=== PATIENT | male | born 1975 | race American Indian/Alaskan Native ===

== ENCOUNTER 2018-11-15 00:50 | Emergency (ER) | payer MEDICAID ==
[2018-11-15] MEDS ORDERED: KEPPRA 1,000 MG in NACL 0.9% 100 ML IV ONE (01:29)
--- NOTE | 2018-11-15 01:33 | Emergency Department Report ---
ED Seizure HPI - General Chief Complaint: Seizure Stated Complaint: SEIZURE Time Seen by Provider: 11/15/18 01:04 Source: EMS Mode of arrival: Stretcher Limitations: Physical Limitation - History of Present Illness Initial Comments: 43-year-old male with history of seizures presents to the ED following seizure activity at home. He is on Keppra 500 mg twice a day, however states he ran out one week ago. MD Complaint: seizure -: This evening Description of Episode: loss of consciousness Witnessed:: Yes Seizure History: known seizure disorder, other (ran out of keppra) Place: home Possible Precipitating Event: other (lack of medication) Associated Symptoms: denies other symptoms Treatments Prior to Arrival: none - Related Data Home Medications Medication Instructions Recorded Confirmed Last Taken levETIRAcetam [Keppra TAB] 2,000 mg PO BID 09/03/18 09/03/18 08/27/18 2000 MG PO BID Previous Rx's Medication Instructions Recorded Last Taken Type levETIRAcetam [Keppra TAB] 1,000 mg PO BID #60 tab 09/03/18 Unknown Rx levETIRAcetam [Keppra TAB] 500 mg PO BID 30 Days #60 tablet 11/15/18 Unknown Rx Allergies Allergy/AdvReac Type Severity Reaction Status Date / Time phenobarbital Allergy Itching Verified 10/06/18 15:09 ED Review of Systems ROS: Stated complaint: SEIZURE Other details as noted in HPI Comment: All other systems reviewed and negative Constitutional: denies: chills, fever Neurological: denies: headache ED Past Medical Hx - Past Medical History Previous Medical History?: Yes Hx Hypertension: Yes Hx CVA: No Hx Heart Attack/AMI: No Hx Congestive Heart Failure: No Hx Diabetes: No Hx Deep Vein Thrombosis: No Hx Pulmonary Embolism: No Hx GERD: No Hx Liver Disease: No Hx Renal Disease: No Hx Sickle Cell Disease: No Hx Arthritis: No Hx Headaches / Migraines: No Hx Seizures: Yes Hx Kidney Stones: No Hx Psychiatric Treatment: No Hx Asthma: No Hx COPD: No Hx Tuberculosis: No Hx Dementia: No Hx HIV: No Additional medical history: LLE AMBULATION - Surgical History Past Surgical History?: Yes Hx Coronary Stent: No Hx Open Heart Surgery: No Hx Pacemaker: No Hx Internal Defibrillator: No Hx Cholecystectomy: No Hx Appendectomy: No Hx Breast Surgery: No 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 - Social History Smoking Status: Light Tobacco Smoker Substance Use Type: Marijuana - Medications Home Medications: Home Medications Medication Instructions Recorded Confirmed Last Taken Type levETIRAcetam [Keppra TAB] 1,000 mg PO BID #60 tab 09/03/18 Unknown Rx levETIRAcetam [Keppra TAB] 2,000 mg PO BID 09/03/18 09/03/18 08/27/18 History 2000 MG PO BID levETIRAcetam [Keppra TAB] 500 mg PO BID 30 Days #60 tablet 11/15/18 Unknown Rx ED Physical Exam - General Limitations: Physical Limitation General appearance: alert, in no apparent distress - Head Head exam: Present: atraumatic, normocephalic - Eye Eye exam: Present: normal appearance - ENT ENT exam: Present: mucous membranes moist - Neck Neck exam: Present: normal inspection - Respiratory Respiratory exam: Present: normal lung sounds bilaterally. Absent: respiratory distress - Cardiovascular Cardiovascular Exam: Present: regular rate, normal rhythm - GI/Abdominal GI/Abdominal exam: Present: soft. Absent: distended - Extremities Exam Extremities exam: Present: other (left BKA present) - Neurological Exam Neurological exam: Present: alert, oriented X3, CN II-XII intact, motor sensory deficit - Psychiatric Psychiatric exam: Present: normal affect, normal mood - Skin Skin exam: Present: warm, dry, intact, normal color ED Course Vital Signs 11/15/18 11/15/18 11/15/18 00:53 01:08 01:15 Temperature 99.2 F Pulse Rate 78 78 Respiratory 20 11 L Rate Blood Pressure 118/70 132/73 O2 Sat by Pulse 99 98 99 Oximetry 11/15/18 11/15/18 11/15/18 01:30 01:45 02:00 Temperature Pulse Rate 78 63 63 Respiratory 16 17 12 Rate Blood Pressure 133/76 119/76 118/72 O2 Sat by Pulse 99 100 100 Oximetry 11/15/18 11/15/18 11/15/18 02:15 02:16 02:30 Temperature Pulse Rate 77 71 Respiratory 16 20 14 Rate Blood Pressure 135/71 125/69 O2 Sat by Pulse 100 98 100 Oximetry 11/15/18 11/15/18 02:45 03:00 Temperature Pulse Rate 71 84 Respiratory 16 18 Rate Blood Pressure 117/57 136/70 O2 Sat by Pulse 99 100 Oximetry ED Medical Decision Making - Lab Data Result diagrams: 11/15/18 01:17 11/15/18 01:17 - Medical Decision Making 43-year-old male history of seizures presents to the ED following a seizure at home. Keppra bolus given here in ED. Labs normal, no electrolyte abnormalities present. Patient observed, no seizure activity while in the ED. Will discharge at this time. Prescription given for keppra. Outpatient follow-up advised. Return precautions given. - Differential Diagnosis seizure, electrolyte abnormalities, med noncompliance Critical care attestation.: If time is entered above; I have spent that time in minutes in the direct care of this critically ill patient, excluding procedure time. ED Disposition Clinical Impression: Seizure Disposition: DC-01 TO HOME OR SELFCARE Is pt being admited?: No Condition: Stable Instructions: Epilepsy (ED) Prescriptions: levETIRAcetam [Keppra TAB] 500 mg PO BID 30 Days #60 tablet Referrals: KOJO BENITO [Primary Care Provider] - 3-5 Days Time of Disposition: 02:12
[2018-11-15 01:46] LABS: BUN/Creatinine Ratio 13; Blood Urea Nitrogen 12 mg/dL (9-20); Calcium 8.7 mg/dL (8.4-10.2); Hemolysis Index 4
[2018-11-15] MEDS ORDERED: KEPPRA 1,000 MG/NS 0.75% 100ML 1,000 MG/100 ML BAG IV ONE (02:00)
[2018-11-15 02:02] LABS: Hematocrit 37.6 % (35.5-45.6); Hemoglobin 12.5 gm/dl (11.8-15.2); Mean Corpuscular HGB Conc 33 % (32-34); Mean Corpuscular Volume 97 fl (84-94); Platelet Count 229 K/mm3 (140-440); Red Blood Count 3.86 M/mm3 (3.65-5.03); Red Cell Distribution Width 13.6 % (13.2-15.2)
[2018-11-15 03:15] VITALS: BP 136/70
== END 2018-11-15 03:15 | disposition home or self-care (01) ==
LOC: ED 00:50
DX: R56.9 Unspecified convulsions (principal); Z88.6 Allergy status to analgesic agent
CPT/HCPCS: 36415; 80048; 82962; 85027; 96374; 99284; J1953

== ENCOUNTER 2018-12-22 10:23 | Emergency (ER) | payer MEDICAID ==
[2018-12-22] MEDS ORDERED: KEPPRA 1,000 MG/NS 0.75% 100ML 1,000 MG/100 ML BAG IV ONE (12:00)
[2018-12-22] MEDS ORDERED: ATIVAN IV ONE (12:01)
--- NOTE | 2018-12-22 13:03 | Emergency Department Report ---
ED General Adult HPI - General Chief complaint: Seizure Stated complaint: SEIZURE Time Seen by Provider: 12/22/18 11:37 Source: patient, EMS Mode of arrival: Stretcher Limitations: No Limitations - History of Present Illness Initial comments: Patient presents to the emergency department for seizures. The patient has had 2 seizures in the last 24 hours. The patient states that it isn't thousand milligrams of Keppra daily but his last dose was yesterday morning because he ran out. Patient has no complaints. -: Sudden Severity scale (0 -10): 0 Improves with: none Worsens with: none Associated Symptoms: denies other symptoms Treatments Prior to Arrival: none - Related Data Previous Rx's Medication Instructions Recorded Last Taken Type levETIRAcetam [Keppra TAB] 1,000 mg PO BID #60 tab 09/03/18 1 Day Ago Rx ~12/21/18 levETIRAcetam [Keppra TAB] 500 mg PO BID #120 tablet 12/22/18 Unknown Rx Allergies Allergy/AdvReac Type Severity Reaction Status Date / Time phenobarbital Allergy Itching Verified 10/06/18 15:09 ED Review of Systems ROS: Stated complaint: SEIZURE Other details as noted in HPI Comment: All other systems reviewed and negative Constitutional: denies: chills, fever Eyes: denies: eye pain, eye discharge, vision change ENT: denies: ear pain, throat pain Respiratory: denies: cough, shortness of breath, wheezing Cardiovascular: denies: chest pain, palpitations Endocrine: no symptoms reported Gastrointestinal: denies: abdominal pain, nausea, diarrhea Genitourinary: denies: urgency, dysuria Musculoskeletal: denies: back pain, joint swelling, arthralgia Skin: denies: rash, lesions Neurological: denies: headache, weakness, paresthesias Psychiatric: denies: anxiety, depression Hematological/Lymphatic: denies: easy bleeding, easy bruising ED Past Medical Hx - Past Medical History Previous Medical History?: Yes Hx Hypertension: Yes Hx CVA: No Hx Heart Attack/AMI: No Hx Congestive Heart Failure: No Hx Diabetes: No Hx Deep Vein Thrombosis: No Hx Pulmonary Embolism: No Hx GERD: No Hx Liver Disease: No Hx Renal Disease: No Hx Sickle Cell Disease: No Hx Arthritis: No Hx Headaches / Migraines: No Hx Seizures: Yes (Takes Keppra 1000 mg BID) Hx Kidney Stones: No Hx Psychiatric Treatment: No Hx Asthma: No Hx COPD: No Hx Tuberculosis: No Hx Dementia: No Hx HIV: No Additional medical history: LLE AMBULATION - Surgical History Past Surgical History?: Yes Hx Coronary Stent: No Hx Open Heart Surgery: No Hx Pacemaker: No Hx Internal Defibrillator: No Hx Cholecystectomy: No Hx Appendectomy: No Hx Breast Surgery: No 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 - Social History Smoking Status: Current Some Day Smoker Substance Use Type: None - Medications Home Medications: Home Medications Medication Instructions Recorded Confirmed Last Taken Type levETIRAcetam [Keppra TAB] 1,000 mg PO BID #60 tab 09/03/18 12/22/18 1 Day Ago Rx ~12/21/18 levETIRAcetam [Keppra TAB] 500 mg PO BID #120 tablet 12/22/18 Unknown Rx ED Physical Exam - General Limitations: No Limitations General appearance: other (patient was post ictal but arousable) - Head Head exam: Present: atraumatic, normocephalic - Eye Eye exam: Present: normal appearance, PERRL, EOMI Pupils: Present: normal accommodation, irregular - ENT ENT exam: Present: normal exam, mucous membranes moist - Neck Neck exam: Present: normal inspection - Respiratory Respiratory exam: Present: normal lung sounds bilaterally. Absent: respiratory distress, wheezes, rales, rhonchi - Cardiovascular Cardiovascular Exam: Present: regular rate, normal rhythm - GI/Abdominal GI/Abdominal exam: Present: soft, normal bowel sounds. Absent: distended, tenderness - Extremities Exam Extremities exam: Present: other (left BKA) - Neurological Exam Neurological exam: Present: CN II-XII intact, other (patient is postictal but upon arousal he is oriented 3). Absent: motor sensory deficit - Skin Skin exam: Present: warm, dry, intact, normal color. Absent: rash ED Course Vital Signs 12/22/18 10:46 Temperature 98.8 F Pulse Rate 70 Respiratory 18 Rate Blood Pressure 116/77 O2 Sat by Pulse 100 Oximetry ED Medical Decision Making - Medical Decision Making IV Keppra and Ativan given Patient seizure free in the ED Critical care attestation.: If time is entered above; I have spent that time in minutes in the direct care of this critically ill patient, excluding procedure time. ED Disposition Clinical Impression: Seizure Disposition: DC-01 TO HOME OR SELFCARE Is pt being admited?: No Does the pt Need Aspirin: No Condition: Stable Instructions: Recurrent Seizures Adult (ED) Additional Instructions: return if worse Prescriptions: levETIRAcetam [Keppra TAB] 500 mg PO BID #120 tablet Referrals: CHRISTA CHAPPELLMONTICELLO MD [facility] [Primary Care Provider] - 3-5 Days [facility] [Provider Group] - 3-5 Days [facility] [Provider Group] - 3-5 Days Time of Disposition: 13:34
[2018-12-22 18:39] VITALS: BP 105/50
== END 2018-12-22 19:28 | disposition home or self-care (01) ==
LOC: ED 10:23
DX: G40.909 Epilepsy, unspecified, not intractable, without status epilepticus (principal); I10 Essential (primary) hypertension; F17.200 Nicotine dependence, unspecified, uncomplicated; Z88.8 Allergy status to other drugs, medicaments and biological substances
CPT/HCPCS: 96374; 96375; 99283; J1953; J2060

== ENCOUNTER 2019-02-28 05:31 | Emergency (ER) | payer MEDICAID, MEDICARE ==
[2019-02-28] MEDS ORDERED: KEPPRA PO ONE (06:40)
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
[2019-02-28 07:04] LABS: Basophils % (Auto) 0.3 % (0.0-1.8); Eosinophils % (Auto) 0.1 % (0.0-4.3); Hematocrit 36.6 % (35.5-45.6); Hemoglobin 12.4 gm/dl (11.8-15.2); Lymphocytes # (Auto) 0.6 K/mm3 (1.2-5.4); Lymphocytes % (Auto) 9.4 % (13.4-35.0); Mean Corpuscular HGB Conc 34 % (32-34); Mean Corpuscular Volume 96 fl (84-94); Monocytes # (Auto) 0.3 K/mm3 (0.0-0.8); Platelet Count 188 K/mm3 (140-440); Red Blood Count 3.81 M/mm3 (3.65-5.03)
[2019-02-28 07:23] LABS: BUN/Creatinine Ratio 10; Blood Urea Nitrogen 8 mg/dL (9-20); Calcium 8.3 mg/dL (8.4-10.2); Hemolysis Index 4
[2019-02-28 09:25] VITALS: BP 117/65
== END 2019-02-28 09:25 | disposition home or self-care (01) ==
LOC: ED 05:31
DX: G40.409 Other generalized epilepsy and epileptic syndromes, not intractable, without status epilepticus (principal); I10 Essential (primary) hypertension; F17.200 Nicotine dependence, unspecified, uncomplicated; F12.10 Cannabis abuse, uncomplicated; Z88.8 Allergy status to other drugs, medicaments and biological substances; Z89.612 Acquired absence of left leg above knee
CPT/HCPCS: 36415; 80048; 83735; 85025; 99284

== ENCOUNTER 2019-04-29 15:38 | Emergency (ER) | payer MEDICAID ==
[2019-04-29 16:37] VITALS: BP 126/81
--- NOTE | 2019-04-29 16:41 | Emergency Department Report ---
ED Medical Clearance HPI - General Chief complaint: Medical Clearance Stated complaint: MEDICATION REFILL Time Seen by Provider: 04/29/19 16:36 Source: patient Mode of arrival: Ambulatory - History of Present Illness Initial comments: pt presents for a medication refill. states his primary care doctor is at [facility]. pt takes levetiracetam 1000 mg BID. pt is on keppra for seizures. states he has one tablet left. could not get transportation to see his PCP at [facility]. pt denies any symptoms at all. states he just presents today for a refill because he did not want to run out of his medication and risk having a seizure. denies any recent seizure activity. Home medications: Previous Rx's Medication Instructions Recorded Last Taken Type levETIRAcetam [Keppra TAB] 500 mg PO BID #120 tablet 12/22/18 Unknown Rx levETIRAcetam [Keppra] 1,000 mg PO BID #60 tab-cap 02/28/19 Unknown Rx levETIRAcetam [Keppra TAB] 1,000 mg PO BID #60 tab 04/29/19 Unknown Rx Allergies/Adverse reactions: Allergies Allergy/AdvReac Type Severity Reaction Status Date / Time phenobarbital Allergy Itching Verified 04/29/19 15:41 ED Review of Systems ROS: Stated complaint: MEDICATION REFILL Other details as noted in HPI Comment: All other systems reviewed and negative ED Past Medical Hx - Past Medical History Hx Hypertension: Yes Hx CVA: No Hx Heart Attack/AMI: No Hx Congestive Heart Failure: No Hx Diabetes: No Hx Deep Vein Thrombosis: No Hx Pulmonary Embolism: No Hx GERD: No Hx Liver Disease: No Hx Renal Disease: No Hx Sickle Cell Disease: No Hx Arthritis: No Hx Headaches / Migraines: No Hx Seizures: Yes (Takes Keppra 1000 mg BID) Hx Kidney Stones: No Hx Psychiatric Treatment: No Hx Asthma: No Hx COPD: No Hx Tuberculosis: No Hx Dementia: No Hx HIV: No Additional medical history: LLE AMBULATION - Surgical History Hx Coronary Stent: No Hx Open Heart Surgery: No Hx Pacemaker: No Hx Internal Defibrillator: No Hx Cholecystectomy: No Hx Appendectomy: No Hx Breast Surgery: No 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, craniotomy - Social History Smoking Status: Current Some Day Smoker Substance Use Type: Marijuana - Medications Home Medications: Home Medications Medication Instructions Recorded Confirmed Last Taken Type levETIRAcetam [Keppra TAB] 500 mg PO BID #120 tablet 12/22/18 Unknown Rx levETIRAcetam [Keppra] 1,000 mg PO BID #60 tab-cap 02/28/19 Unknown Rx levETIRAcetam [Keppra TAB] 1,000 mg PO BID #60 tab 04/29/19 Unknown Rx ED Physical Exam - General Limitations: No Limitations General appearance: alert, in no apparent distress - Head Head exam: Present: atraumatic, normocephalic - Eye Eye exam: Present: normal appearance - ENT ENT exam: Present: mucous membranes moist - Respiratory Respiratory exam: Present: normal lung sounds bilaterally. Absent: respiratory distress, wheezes, rales, rhonchi, stridor, chest wall tenderness, accessory muscle use, decreased breath sounds, prolonged expiratory - Cardiovascular Cardiovascular Exam: Present: regular rate, normal rhythm, normal heart sounds. Absent: systolic murmur, diastolic murmur, rubs, gallop - Extremities Exam Extremities exam: Present: other (left BKA) - Neurological Exam Neurological exam: Present: alert, oriented X3 - Psychiatric Psychiatric exam: Present: normal affect, normal mood - Skin Skin exam: Present: warm, dry, intact ED Course Vital Signs 04/29/19 16:36 Temperature 98.1 F Pulse Rate 87 Respiratory 16 Rate Blood Pressure 126/81 O2 Sat by Pulse 100 Oximetry ED Medical Decision Making - Medical Decision Making pt presents for a medication refill. states his primary care doctor is at [facility]. pt takes levetiracetam 1000 mg BID. pt is on keppra for seizures. states he has one tablet left. could not get transportation to see his PCP at [facility]. pt denies any symptoms at all. states he just presents today for a refill because he did not want to run out of his medication and risk having a seizure. denies any recent seizure activity. vitals are normal. refilled a 1 month supply of his medication. advised to please take your medication as prescribed. future refills of your medication will need to be through your primary care doctor or one of the clinics listed below. it is very important you see a primary care doctor on a regular basis to manage your chronic medical conditions. return to the emergency room if begin experiencing any symptoms. ED Disposition Clinical Impression: Medication refill Disposition: DC- TO HOME OR SELFCARE Is pt being admited?: No Does the pt Need Aspirin: No Condition: Stable Additional Instructions: please take your medication as prescribed. future refills of your medication will need to be through your primary care doctor or one of the clinics listed below. it is very important you see a primary care doctor on a regular basis to manage your chronic medical conditions. return to the emergency room if begin experiencing any symptoms. Prescriptions: levETIRAcetam [Keppra TAB] 1,000 mg PO BID #60 tab Referrals: [facility] [Outside] - 2-3 Days [facility] [Outside] - 2-[address] [facility] [Outside] - 2-3 Days Time of Disposition: 16:40 Print Language: GEORGI[place]
== END 2019-04-29 17:03 | disposition home or self-care (01) ==
LOC: ED 15:38
DX: R56.9 Unspecified convulsions (principal); Z76.0 Encounter for issue of repeat prescription; I10 Essential (primary) hypertension; F17.200 Nicotine dependence, unspecified, uncomplicated; F12.90 Cannabis use, unspecified, uncomplicated; Z88.8 Allergy status to other drugs, medicaments and biological substances
CPT/HCPCS: 99281

== ENCOUNTER 2019-05-02 13:14 | Emergency (ER) | payer MEDICAID ==
[2019-05-02] MEDS ORDERED: KEPPRA 1,000 MG/NS 0.75% 100ML 1,000 MG/100 ML BAG IV ONE (13:38)
[2019-05-02 13:47] VITALS: BP 110/71
--- NOTE | 2019-05-02 14:03 | Emergency Department Report ---
ED General Adult HPI - General Chief complaint: Seizure Stated complaint: SEIZURE Time Seen by Provider: 05/02/19 13:37 Source: patient, EMS Mode of arrival: Stretcher Limitations: Physical Limitation - History of Present Illness Initial comments: 44-year-old male with a history of seizure disorder. He states his last seizure before today was less than a month ago. He admits that he had been running out of his Keppra. He states he took the "last pill last night". He had a generalized seizure this morning. He denies any injury. He denies any ant ecedent illness or symptoms. He is asymptomatic at this time. -: Gradual Improves with: none Worsens with: none Associated Symptoms: denies other symptoms Treatments Prior to Arrival: none - Related Data Previous Rx's Medication Instructions Recorded Last Taken Type levETIRAcetam [Keppra TAB] 500 mg PO BID #120 tablet 12/22/18 Unknown Rx levETIRAcetam [Keppra TAB] 1,000 mg PO BID #60 tab 04/29/19 Unknown Rx levETIRAcetam [Keppra] 1,000 mg PO BID #60 tab-cap 05/02/19 Unknown Rx Allergies Allergy/AdvReac Type Severity Reaction Status Date / Time phenobarbital Allergy Itching Verified 05/02/19 13:39 ED Review of Systems ROS: Stated complaint: SEIZURE Other details as noted in HPI Constitutional: denies: chills, fever Eyes: denies: eye pain, eye discharge, vision change ENT: denies: ear pain, throat pain Respiratory: denies: cough, shortness of breath, wheezing Cardiovascular: denies: chest pain, palpitations Endocrine: no symptoms reported Gastrointestinal: denies: abdominal pain, nausea, diarrhea Genitourinary: denies: urgency, dysuria Musculoskeletal: denies: back pain, joint swelling, arthralgia Skin: denies: rash, lesions Neurological: as per HPI. denies: headache, weakness, paresthesias Psychiatric: denies: anxiety, depression Hematological/Lymphatic: denies: easy bleeding, easy bruising ED Past Medical Hx - Past Medical History Hx Hypertension: Yes Hx CVA: No Hx Heart Attack/AMI: No Hx Congestive Heart Failure: No Hx Diabetes: No Hx Deep Vein Thrombosis: No Hx Pulmonary Embolism: No Hx GERD: No Hx Liver Disease: No Hx Renal Disease: No Hx Sickle Cell Disease: No Hx Arthritis: No Hx Headaches / Migraines: No Hx Seizures: Yes (Takes Keppra 1000 mg BID) Hx Kidney Stones: No Hx Psychiatric Treatment: No Hx Asthma: No Hx COPD: No Hx Tuberculosis: No Hx Dementia: No Hx HIV: No Additional medical history: LLE AMBULATION - Surgical History Hx Coronary Stent: No Hx Open Heart Surgery: No Hx Pacemaker: No Hx Internal Defibrillator: No Hx Cholecystectomy: No Hx Appendectomy: No Hx Breast Surgery: No 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, craniotomy - Social History Smoking Status: Current Every Day Smoker Substance Use Type: Marijuana Other Social History: Denies alcohol use - Medications Home Medications: Home Medications Medication Instructions Recorded Confirmed Last Taken Type levETIRAcetam [Keppra TAB] 500 mg PO BID #120 tablet 12/22/18 Unknown Rx levETIRAcetam [Keppra TAB] 1,000 mg PO BID #60 tab 04/29/19 Unknown Rx levETIRAcetam [Keppra] 1,000 mg PO BID #60 tab-cap 05/02/19 Unknown Rx ED Physical Exam - General Limitations: Physical Limitation General appearance: alert, in no apparent distress - Head Head exam: Present: atraumatic, normocephalic - Eye Eye exam: Present: normal appearance - ENT ENT exam: Present: mucous membranes moist, other (patient had some tongue fasciculations but he denies alcohol use he does not otherwise appear to be withdrawing.) - Neck Neck exam: Present: normal inspection - Respiratory Respiratory exam: Present: normal lung sounds bilaterally. Absent: respiratory distress - Cardiovascular Cardiovascular Exam: Present: regular rate, normal rhythm. Absent: systolic murmur, diastolic murmur, rubs, gallop - GI/Abdominal GI/Abdominal exam: Present: soft, normal bowel sounds - Rectal Rectal exam: Present: deferred - Extremities Exam Extremities exam: Present: normal inspection - Back Exam Back exam: Present: normal inspection - Neurological Exam Neurological exam: Present: alert, oriented X3 - Psychiatric Psychiatric exam: Present: normal affect, normal mood - Skin Skin exam: Present: warm, dry, intact, normal color. Absent: rash ED Course Vital Signs 05/02/19 13:40 Temperature 98.3 F Pulse Rate 61 Respiratory 16 Rate Blood Pressure 110/71 O2 Sat by Pulse 100 Oximetry ED Medical Decision Making - Lab Data Result diagrams: 05/02/19 14:01 05/02/19 14:01 Laboratory Results - last 24 hr 05/02/19 05/02/19 14:01 14:01 WBC 3.5 L RBC 4.12 Hgb 13.3 Hct 39.4 MCV 96 H MCH 32 MCHC 34 RDW 13.7 Plt Count 182 Lymph % (Auto) 27.2 Phillips % (Auto) 9.7 H Eos % (Auto) 0.3 Baso % (Auto) 0.8 Lymph # 1.0 L Phillips # 0.3 Eos # 0.0 Baso # 0.0 Seg Neutrophils % 62.0 Seg Neutrophils # 2.2 Sodium 138 Potassium 3.9 Chloride 103.5 Carbon Dioxide 23 Anion Gap 15 BUN 10 Creatinine 0.9 Estimated GFR > 60 BUN/Creatinine Ratio 11 Glucose 93 Calcium 9.1 Magnesium 2.00 Critical care attestation.: If time is entered above; I have spent that time in minutes in the direct care of this critically ill patient, excluding procedure time. ED Disposition Clinical Impression: Generalized seizure, Generalized seizure disorder Disposition: DC-01 TO HOME OR SELFCARE Is pt being admited?: No Does the pt Need Aspirin: No Condition: Stable Instructions: Epilepsy (ED) Additional Instructions: Do not drive. Follow-up with [facility] clinic. Compliance with medicine is essential. Prescriptions: levETIRAcetam [Keppra] 1,000 mg PO BID #60 tab-cap Referrals: CHRISTA CHAPPELLJEWETT MD XOCHITL [Primary Care Provider] - 3-5 Days Time of Disposition: 15:18
[2019-05-02 14:12] LABS: Basophils % (Auto) 0.8 % (0.0-1.8); Eosinophils % (Auto) 0.3 % (0.0-4.3); Hematocrit 39.4 % (35.5-45.6); Hemoglobin 13.3 gm/dl (11.8-15.2); Lymphocytes % (Auto) 27.2 % (13.4-35.0); Mean Corpuscular HGB Conc 34 % (32-34); Mean Corpuscular Volume 96 fl (84-94); Monocytes # (Auto) 0.3 K/mm3 (0.0-0.8); Monocytes % (Auto) 9.7 % (0.0-7.3); Platelet Count 182 K/mm3 (140-440); Red Blood Count 4.12 M/mm3 (3.65-5.03); Red Cell Distribution Width 13.7 % (13.2-15.2)
[2019-05-02 14:27] LABS: BUN/Creatinine Ratio 11; Blood Urea Nitrogen 10 mg/dL (9-20); Calcium 9.1 mg/dL (8.4-10.2); Hemolysis Index 11
== END 2019-05-02 15:48 | disposition home or self-care (01) ==
LOC: ED 13:14
DX: G40.409 Other generalized epilepsy and epileptic syndromes, not intractable, without status epilepticus (principal); I10 Essential (primary) hypertension; F17.200 Nicotine dependence, unspecified, uncomplicated; F12.90 Cannabis use, unspecified, uncomplicated; Z98.890 Other specified postprocedural states; Z79.899 Other long term (current) drug therapy; Z89.612 Acquired absence of left leg above knee; Z88.8 Allergy status to other drugs, medicaments and biological substances
CPT/HCPCS: 36415; 80048; 83735; 85025; 93005; 93010; 96365; 99284; J1953

== ENCOUNTER 2019-05-06 12:55 | Emergency (ER) | payer MEDICAID ==
--- NOTE | 2019-05-06 15:27 | Emergency Department Report ---
Chief Complaint: Skin/Abscess/Foreign Body Stated Complaint: OTHER Time Seen by Provider: 05/06/19 14:36 - HPI History of Present Illness: This is a 44-year-old male who presents to ED once into phase day chairs taken out. Patient states 2-3 years ago to dentures were put in by [place] after he had a trauma to his teeth. Patient states he's teeth were replaced and the dentures are present and placed a voided out. Patient states that while he had a seizure several days ago one of the dentures came out of place and he is here to have it removed. She denies any bleeding and a laceration in the fracture or dental pain. - ROS Review of Systems: Make sure to follow up with the primary care physician as discussed. Take all your medications as you've been prescribed. If you have any worsening symptoms or develop new symptoms please return to ED immediately. - Exam Vital Signs: Vital Signs 05/06/19 13:05 Temperature 98.2 F Pulse Rate 85 Respiratory 16 Rate Blood Pressure 120/83 [Left] O2 Sat by Pulse 96 Oximetry Physical Exam: Gen: Patient is in no acute distress. Alert and oriented 3 HEENT: Partially removed dentures seen on tooth #3, 4 and 5 MSE screening note: Focused history and physical exam performed. Due to findings the following was ordered: ED Medical Decision Making - Medical Decision Making 44-year-old male presents to ED with the partial dental clasp stating that he would like to have it removed. I discussed with the patient that he would need to go to the accident take or dentist to have that removed. Referrals given to the patient. Patient is in no acute distress. Stable. Patient understands instructions and will follow-up with the dentist. ED Disposition for MSE Clinical Impression: Difficulty chewing due to dentures, Broken clasp of denture Disposition: DC-01 TO HOME OR SELFCARE Is pt being admited?: No Does the pt Need Aspirin: No Condition: Stable Additional Instructions: Make sure to follow up with the dentist as discussed. Take all your medications as you've been prescribed. If you have any worsening symptoms or develop new symptoms please return to ED immediately. Referrals: KOJO BENITO MD [Primary Care Provider] - 3-5 Days [facility] [Outside] - 3-5 Days [facility] [Outside] - 3-5 Days [facility] [Outside] - 3-5 Days [facility] [Outside] - 3-5 Days Forms: Work/School Release Form(ED) Time of Disposition: 15:31
[2019-05-06 15:43] VITALS: BP 125/74
== END 2019-05-06 15:41 | disposition home or self-care (01) ==
LOC: ED 12:55
DX: K08.539 Fractured dental restorative material, unspecified (principal)
CPT/HCPCS: 99282

== ENCOUNTER 2019-06-03 10:22 | Emergency (ER) | payer MEDICAID ==
[2019-06-03] MEDS ORDERED: KEPPRA 1,000 MG/NS 0.75% 100ML 1,000 MG/100 ML BAG IV ONE (10:33)
[2019-06-03] MEDS ORDERED: NACL 0.9% 1000 ML 1,000 ML IV ONE (10:33)
--- NOTE | 2019-06-03 10:34 | Emergency Department Report ---
ED Seizure HPI - General Stated Complaint: SEIZURES Time Seen by Provider: 06/03/19 10:32 - History of Present Illness Initial Comments: Patient is a 44-year-old mellitus emergency room with complaints of seizure. Patient states he ran out of his seizure medications 2 days ago. Patient states that he has not had time to go back and see his neurologist or primary care is why he ran out of medications. Patient denies head injury. Patient states she was laying down when the seizure took place. Patient states the seizure was witnessed by his family. Patient is alert and oriented at this time. Patient denies headache. Patient denies any symptoms except for feeling fatigued. Patient denies confusion. Patient denies injury. MD Complaint: seizure -: Sudden Description of Episode: loss of consciousness, tonic-clonic movement -: second(s) Witnessed:: Yes Trauma: No Seizure History: known seizure disorder, history of non-compliance Place: home Possible Precipitating Event: none Associated Symptoms: denies: chest pain, confusion, cough, diaphoresis, fever/chills, loss of appetite, malaise, rash, shortness of breath, syncope, weakness, tongue injury, shoulder dislocation Treatments Prior to Arrival: none - Related Data Previous Rx's Medication Instructions Recorded Last Taken Type levETIRAcetam [Keppra TAB] 500 mg PO BID #120 tablet 12/22/18 Unknown Rx levETIRAcetam [Keppra] 1,000 mg PO BID #60 tab-cap 05/02/19 Unknown Rx levETIRAcetam [Keppra TAB] 1,000 mg PO BID 15 Days #30 tab 06/03/19 Unknown Rx Allergies Allergy/AdvReac Type Severity Reaction Status Date / Time phenobarbital Allergy Itching Verified 05/06/19 12:57 ED Review of Systems ROS: Stated complaint: SEIZURES Other details as noted in HPI Constitutional: denies: chills, fever Eyes: denies: eye pain, eye discharge, vision change ENT: denies: ear pain, throat pain Respiratory: denies: cough, shortness of breath, wheezing Cardiovascular: denies: chest pain, palpitations Endocrine: no symptoms reported Gastrointestinal: denies: abdominal pain, nausea, diarrhea Genitourinary: denies: urgency, dysuria Musculoskeletal: denies: back pain, joint swelling, arthralgia Skin: denies: rash, lesions Neurological: denies: headache, weakness, paresthesias Psychiatric: denies: anxiety, depression Hematological/Lymphatic: denies: easy bleeding, easy bruising ED Past Medical Hx - Past Medical History Previous Medical History?: Yes Hx Hypertension: Yes Hx CVA: No Hx Heart Attack/AMI: No Hx Congestive Heart Failure: No Hx Diabetes: No Hx Deep Vein Thrombosis: No Hx Pulmonary Embolism: No Hx GERD: No Hx Liver Disease: No Hx Renal Disease: No Hx Sickle Cell Disease: No Hx Arthritis: No Hx Headaches / Migraines: No Hx Seizures: Yes (Takes Keppra 1000 mg BID) Hx Kidney Stones: No Hx Psychiatric Treatment: No Hx Asthma: No Hx COPD: No Hx Tuberculosis: No Hx Dementia: No Hx HIV: No Additional medical history: LLE AMBULATION - Surgical History Past Surgical History?: Yes Hx Coronary Stent: No Hx Open Heart Surgery: No Hx Pacemaker: No Hx Internal Defibrillator: No Hx Cholecystectomy: No Hx Appendectomy: No Hx Breast Surgery: No 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, craniotomy - Family History Family history: no significant - Social History Smoking Status: Never Smoker Substance Use Type: None - Medications Home Medications: Home Medications Medication Instructions Recorded Confirmed Last Taken Type levETIRAcetam [Keppra TAB] 500 mg PO BID #120 tablet 12/22/18 Unknown Rx levETIRAcetam [Keppra] 1,000 mg PO BID #60 tab-cap 05/02/19 Unknown Rx levETIRAcetam [Keppra TAB] 1,000 mg PO BID 15 Days #30 tab 06/03/19 Unknown Rx ED Physical Exam - General Limitations: No Limitations General appearance: alert, in no apparent distress - Head Head exam: Present: atraumatic, normocephalic - Eye Eye exam: Present: normal appearance, PERRL Pupils: Present: normal accommodation - ENT ENT exam: Present: mucous membranes moist - Neck Neck exam: Present: normal inspection - Respiratory Respiratory exam: Present: normal lung sounds bilaterally. Absent: respiratory distress - Cardiovascular Cardiovascular Exam: Present: regular rate, normal rhythm. Absent: systolic murmur, diastolic murmur, rubs, gallop - GI/Abdominal GI/Abdominal exam: Present: soft, normal bowel sounds - Rectal Rectal exam: Present: deferred - Extremities Exam Extremities exam: Present: normal inspection - Back Exam Back exam: Present: normal inspection - Neurological Exam Neurological exam: Present: alert, oriented X3 - Psychiatric Psychiatric exam: Present: normal affect, normal mood - Skin Skin exam: Present: warm, dry, intact, normal color. Absent: rash ED Course Vital Signs 06/03/19 06/03/19 06/03/19 10:34 10:47 11:50 Temperature 97.9 F Pulse Rate 69 55 L Respiratory 16 16 16 Rate Blood Pressure 116/76 Blood Pressure 116/76 [Right] O2 Sat by Pulse 100 96 99 Oximetry - Reevaluation(s) Reevaluation #1: I discussed all results with patient. I discussed plan of care with patient. Patient states feeling good. Patient has not had any seizure activity in the E R. Patient given a refill of his medications. Patient agrees with plan of care. Patient stable at discharge. Patient will be discharged home. Patient given discharge instructions. Patient given follow-up instructions. Patient voiced understanding of all instructions. 06/03/19 13:19 ED Medical Decision Making - Lab Data Result diagrams: 06/03/19 12:24 06/03/19 12:24 - Medical Decision Making Patient is a 44-year-old male with a known history of seizure the patient's emergency room seizure activity secondary to noncompliance. Patient given a refill of medications. Patient's labs unremarkable for a systematic pyuria. Pyuria most like secondary to seizure activity. Patient will need to follow up with his primary care for further evaluation and refills. Patient given IV Keppra at 1 g in the ER. Patient also tolerated by mouth intake. Patient stable for discharge. - Differential Diagnosis seizure. Noncompliance. Critical care attestation.: If time is entered above; I have spent that time in minutes in the direct care of this critically ill patient, excluding procedure time. ED Disposition Clinical Impression: Seizure, Noncompliance Disposition: DC-01 TO HOME OR SELFCARE Is pt being admited?: No Does the pt Need Aspirin: No Condition: Stable Instructions: Epilepsy (ED), Recurrent Seizures Adult (ED) Additional Instructions: Patient to follow-up with primary care in 2-3 days. Patient to follow up with neurologist in 2-3 days. Patient to return to the ER if condition worsens. Patient to take meds as directed. Patient to continue all meds. Patient increase water. Patient to avoid driving. Patient to rest. Prescriptions: levETIRAcetam [Keppra TAB] 1,000 mg PO BID 15 Days #30 tab Referrals: ALFRED MCKNIGHT MD [Primary Care Provider] - 2-3 Days Time of Disposition: 13:21
[2019-06-03 10:43] VITALS: BP 116/76
[2019-06-03 12:26] LABS: Bilirubin,Urine NEG (Negative); Blood,Urine SM (Negative); Color,Urine Yellow (Yellow); Mucus,Urine FEW /HPF; Protein,Urine <15 mg/dL mg/dL (Negative); Urobilinogen,Urine < 2.0 mg/dL (<2.0)
[2019-06-03 12:33] LABS: Amphetamine Screen,Urine PRESUMPTIVE NEGATIVE; Benzodiazepines Screen,Urine PRESUMPTIVE NEGATIVE; Cocaine Screen,Urine PRESUMPTIVE NEGATIVE; Methadone Screen,Urine PRESUMPTIVE NEGATIVE; Opiate Screen,Urine PRESUMPTIVE NEGATIVE
[2019-06-03 12:50] LABS: Basophils # (Auto) 0.1 K/mm3 (0.0-0.1); Hematocrit 37.5 % (35.5-45.6); Hemoglobin 12.6 gm/dl (11.8-15.2); Lymphocytes # (Auto) 0.6 K/mm3 (1.2-5.4); Lymphocytes % (Auto) 5.8 % (13.4-35.0); Mean Corpuscular HGB Conc 34 % (32-34); Mean Corpuscular Volume 96 fl (84-94); Monocytes # (Auto) 0.5 K/mm3 (0.0-0.8); Monocytes % (Auto) 5.1 % (0.0-7.3); Platelet Count 164 K/mm3 (140-440); Red Cell Distribution Width 13.3 % (13.2-15.2)
[2019-06-03 12:51] LABS: Cannabinoid Screen,Urine PRESUMPTIVE POSITIVE
[2019-06-03 13:11] LABS: Alanine Aminotransferase 5 units/L (7-56); Albumin 3.8 g/dL (3.9-5); BUN/Creatinine Ratio 11; Blood Urea Nitrogen 10 mg/dL (9-20); Calcium 8.3 mg/dL (8.4-10.2); Hemolysis Index 9
== END 2019-06-03 14:11 | disposition home or self-care (01) ==
LOC: ED 10:22
DX: G40.909 Epilepsy, unspecified, not intractable, without status epilepticus (principal); I10 Essential (primary) hypertension; Z88.2 Allergy status to sulfonamides
CPT/HCPCS: 36415; 80053; 80307; 81001; 85025; 96374; 99284; J1953; J7030; 80320; G0480

== ENCOUNTER 2019-08-23 12:01 | Emergency (ER) | payer MEDICAID ==
[2019-08-23 12:44] VITALS: BP 125/69
[2019-08-23] MEDS ORDERED: levETIRAcetam 1000 MG/NS 0.75% 1,000 MG/100 ML BAG IV ONE (13:00)
[2019-08-23] MEDS ORDERED: SODIUM CHLORIDE 0.9% 1000 ML 1,000 ML IV ONE (13:08)
--- NOTE | 2019-08-23 13:08 | Emergency Department Report ---
ED General Adult HPI - General Chief complaint: Seizure Stated complaint: SEIZURE Time Seen by Provider: 08/23/19 13:01 Source: patient, EMS Mode of arrival: Stretcher Limitations: No Limitations - History of Present Illness Initial comments: Mr. Stone is a 44-year-old who comes to the ER via EMS after having a seizure this morning. He was found to be postictal by EMS. The patient has a known seizure disorder and is supposed to be taking Keppra. However, he states that he ran out. 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 On arrival to the emergency room patient was alert and oriented. He does report cigarette use alcohol use and occasional marijuana. He currently lives with his step daughter. -: Sudden Associated Symptoms: denies other symptoms Treatments Prior to Arrival: none - Related Data Previous Rx's Medication Instructions Recorded Last Taken Type levETIRAcetam [Keppra TAB] 1,000 mg PO BID #120 tablet 08/23/19 Unknown Rx levETIRAcetam [Keppra TAB] 1,000 mg PO BID #60 tab 08/23/19 Unknown Rx Allergies Allergy/AdvReac Type Severity Reaction Status Date / Time phenobarbital Allergy Itching Verified 08/23/19 12:45 ED Review of Systems ROS: Stated complaint: SEIZURE Other details as noted in HPI Comment: All other systems reviewed and negative ED Past Medical Hx - Past Medical History Previous Medical History?: Yes Hx Hypertension: Yes Hx CVA: No Hx Heart Attack/AMI: No Hx Congestive Heart Failure: No Hx Diabetes: No Hx Deep Vein Thrombosis: No Hx Pulmonary Embolism: No Hx GERD: No Hx Liver Disease: No Hx Renal Disease: No Hx Sickle Cell Disease: No Hx Arthritis: No Hx Headaches / Migraines: No Hx Seizures: Yes (Takes Keppra 1000 mg BID) Hx Kidney Stones: No Hx Psychiatric Treatment: No Hx Asthma: No Hx COPD: No Hx Tuberculosis: No Hx Dementia: No Hx HIV: No Additional medical history: LLE AMBULATION - Surgical History Past Surgical History?: Yes Hx Coronary Stent: No Hx Open Heart Surgery: No Hx Pacemaker: No Hx Internal Defibrillator: No Hx Cholecystectomy: No Hx Appendectomy: No Hx Breast Surgery: No 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, craniotomy - Family History Family history: no significant - Social History Smoking Status: Current Every Day Smoker Substance Use Type: Alcohol, Marijuana - Medications Home Medications: Home Medications Medication Instructions Recorded Confirmed Last Taken Type levETIRAcetam [Keppra TAB] 1,000 mg PO BID #120 tablet 08/23/19 08/23/19 Unknown Rx levETIRAcetam [Keppra TAB] 1,000 mg PO BID #60 tab 08/23/19 Unknown Rx ED Physical Exam - General Limitations: No Limitations General appearance: alert, in no apparent distress - Head Head exam: Present: atraumatic, normocephalic - Eye Eye exam: Present: normal appearance - ENT ENT exam: Present: mucous membranes moist - Neck Neck exam: Present: normal inspection - Respiratory Respiratory exam: Present: normal lung sounds bilaterally. Absent: respiratory distress - Cardiovascular Cardiovascular Exam: Present: regular rate, normal rhythm. Absent: systolic murmur, diastolic murmur, rubs, gallop - GI/Abdominal GI/Abdominal exam: Present: soft, normal bowel sounds - Rectal Rectal exam: Present: deferred - Extremities Exam Extremities exam: Present: normal inspection - Back Exam Back exam: Present: normal inspection - Neurological Exam Neurological exam: Present: alert, oriented X3 - Psychiatric Psychiatric exam: Present: normal affect, normal mood - Skin Skin exam: Present: warm, dry, intact, normal color. Absent: rash ED Course Vital Signs 08/23/19 08/23/19 12:37 12:54 Temperature 99 F Pulse Rate 97 H Respiratory 16 16 Rate Blood Pressure 125/69 O2 Sat by Pulse 100 100 Oximetry ED Medical Decision Making - Lab Data Result diagrams: 08/23/19 13:51 08/23/19 13:51 - Medical Decision Making Lab Results 08/23/19 08/23/19 Range/Units 13:51 13:51 WBC 6.7 (4.5-11.0) K/mm3 RBC 3.46 L (3.65-5.03) M/mm3 Hgb 11.3 L (11.8-15.2) gm/dl Hct 34.1 L (35.5-45.6) % MCV 99 H (84-94) fl MCH 33 H (28-32) pg MCHC 33 (32-34) % RDW 14.7 (13.2-15.2) % Plt Count 193 (140-440) K/mm3 Sodium 142 (137-145) mmol/L Potassium 3.7 (3.6-5.0) mmol/L Chloride 107.5 H (98-107) mmol/L Carbon Dioxide 16 L (22-30) mmol/L Anion Gap 22 mmol/L BUN 6 L (9-20) mg/dL Creatinine 0.9 (0.8-1.5) mg/dL Estimated GFR > 60 ml/min BUN/Creatinine Ratio 7 % Glucose 96 (75-100) mg/dL Calcium 8.3 L (8.4-10.2) mg/dL Total Creatine Kinase 143 (55-170) units/L Vital Signs 08/23/19 08/23/19 12:37 12:54 Temperature 99 F Pulse Rate 97 H Respiratory 16 16 Rate Blood Pressure 125/69 O2 Sat by Pulse 100 100 Oximetry pt was alert and oriented and had no focal def on arrival to ER INT inserted Keppra ordered The keppra was not infusing and the pt had another witnessed seizure- LOC with mild clonic activity. He did maintain airway. Given ativan 1 mg IV Pt then got NS/Keppra Since that time pt has been without seizures, has normal vs, but has been sleeping post ativan/seizure. He arouses to tactile stimulation. Prior to the sz here in the ER I discussed with pt the importance of daily compliance with his keppra. When awake pt will be dc home with family and with rx and follow up. - Differential Diagnosis sz Critical care attestation.: If time is entered above; I have spent that time in minutes in the direct care of this critically ill patient, excluding procedure time. ED Disposition Clinical Impression: Seizure, Seizure disorder, Nonadherence to medication Disposition: DC-01 TO HOME OR SELFCARE Is pt being admited?: No Does the pt Need Aspirin: No Condition: Stable Additional Instructions: TAKE MEDS INSTRUCTED FOLLOW UP WITH PCP REFERRAL BELOW Prescriptions: levETIRAcetam [Keppra TAB] 1,000 mg PO BID #60 tab levETIRAcetam [Keppra TAB] 1,000 mg PO BID #120 tablet Referrals: PRIMARY CARE, [Primary Care Provider] - 3-5 Days [facility] [Outside] - 3-5 Days Time of Disposition: 15:29
[2019-08-23] MEDS ORDERED: LORazepam 2 MG/ML VIAL ONE (13:36)
[2019-08-23] MEDS ORDERED: LORazepam 2 MG/ML VIAL IV ONE (13:43)
[2019-08-23 14:12] LABS: Hematocrit 34.1 % (35.5-45.6); Hemoglobin 11.3 gm/dl (11.8-15.2); Mean Corpuscular HGB Conc 33 % (32-34); Mean Corpuscular Volume 99 fl (84-94); Platelet Count 193 K/mm3 (140-440); Red Blood Count 3.46 M/mm3 (3.65-5.03); Red Cell Distribution Width 14.7 % (13.2-15.2)
[2019-08-23 14:57] LABS: BUN/Creatinine Ratio 7; Blood Urea Nitrogen 6 mg/dL (9-20); Calcium 8.3 mg/dL (8.4-10.2); Hemolysis Index 22
[2019-08-23] MEDS ORDERED: levETIRAcetam 500 MG TAB PO ONE ×2 (15:26→18:07)
== END 2019-08-23 21:30 | disposition home or self-care (01) ==
LOC: ED 12:01
DX: G40.909 Epilepsy, unspecified, not intractable, without status epilepticus (principal); I10 Essential (primary) hypertension; F17.200 Nicotine dependence, unspecified, uncomplicated; F12.10 Cannabis abuse, uncomplicated; Z91.14 Patient's other noncompliance with medication regimen; Z88.8 Allergy status to other drugs, medicaments and biological substances
CPT/HCPCS: 36415; 80048; 82550; 85027; 96374; 96375; 99284; J1953; J2060; J7030

== ENCOUNTER 2019-09-30 15:23 | Emergency (ER) | payer MEDICAID ==
[2019-09-30] MEDS ORDERED: levETIRAcetam 1000 MG/NS 0.75% 1,000 MG/100 ML BAG IV ONE (17:34)
[2019-09-30 17:58] LABS: Basophils % (Auto) 0.6 % (0.0-1.8); Hematocrit 37.3 % (35.5-45.6); Hemoglobin 12.6 gm/dl (11.8-15.2); Lymphocytes # (Auto) 0.9 K/mm3 (1.2-5.4); Lymphocytes % (Auto) 10.1 % (13.4-35.0); Mean Corpuscular HGB Conc 34 % (32-34); Mean Corpuscular Volume 99 fl (84-94); Monocytes # (Auto) 0.6 K/mm3 (0.0-0.8); Monocytes % (Auto) 7.5 % (0.0-7.3); Platelet Count 203 K/mm3 (140-440); Red Blood Count 3.78 M/mm3 (3.65-5.03); Red Cell Distribution Width 14.2 % (13.2-15.2)
[2019-09-30 18:09] LABS: BUN/Creatinine Ratio 10; Blood Urea Nitrogen 8 mg/dL (9-20); Calcium 8.6 mg/dL (8.4-10.2); Hemolysis Index 19
--- NOTE | 2019-09-30 19:33 | Emergency Department Report ---
ED Seizure HPI - General Chief Complaint: Seizure Stated Complaint: CONVULSIONS Time Seen by Provider: 09/30/19 18:14 Source: patient, EMS Mode of arrival: Stretcher Limitations: Physical Limitation - History of Present Illness Initial Comments: 44-year-old male with history of seizure presents to the ED after having multiple seizures today. Patient states he may have missed 1 or 2 doses over the last couple of days. He denies any recent illness, headache, vomiting, fever. MD Complaint: seizure Witnessed:: Yes Trauma: No Seizure History: known seizure disorder Place: home Possible Precipitating Event: none Associated Symptoms: denies: chest pain, fever/chills Treatments Prior to Arrival: none - Related Data Previous Rx's Medication Instructions Recorded Last Taken Type levETIRAcetam [Keppra TAB] 1,000 mg PO BID #120 tablet 08/23/19 Unknown Rx levETIRAcetam [Keppra TAB] 1,000 mg PO BID #60 tab 08/23/19 Unknown Rx levETIRAcetam [Keppra TAB] 1,000 mg PO BID #60 tab 09/30/19 Unknown Rx Allergies Allergy/AdvReac Type Severity Reaction Status Date / Time phenobarbital Allergy Itching Verified 08/23/19 12:45 ED Review of Systems ROS: Stated complaint: CONVULSIONS Other details as noted in HPI Comment: All other systems reviewed and negative Constitutional: denies: chills, fever Respiratory: denies: cough Gastrointestinal: denies: nausea, vomiting Neurological: other (reports seizure). denies: headache ED Past Medical Hx - Past Medical History Previous Medical History?: Yes Hx Hypertension: No Hx CVA: No Hx Heart Attack/AMI: No Hx Congestive Heart Failure: No Hx Diabetes: No Hx Deep Vein Thrombosis: No Hx Pulmonary Embolism: No Hx GERD: No Hx Liver Disease: No Hx Renal Disease: No Hx Sickle Cell Disease: No Hx Arthritis: No Hx Headaches / Migraines: No Hx Seizures: Yes (Takes Keppra 1000 mg BID) Hx Kidney Stones: No Hx Psychiatric Treatment: No Hx Asthma: No Hx COPD: No Hx Tuberculosis: No Hx Dementia: No Hx HIV: No Additional medical history: LLE AMBULATION - Surgical History Past Surgical History?: No Hx Coronary Stent: No Hx Open Heart Surgery: No Hx Pacemaker: No Hx Internal Defibrillator: No Hx Cholecystectomy: No Hx Appendectomy: No Hx Breast Surgery: No 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, craniotomy - Social History Smoking Status: Current Every Day Smoker Substance Use Type: Marijuana - Medications Home Medications: Home Medications Medication Instructions Recorded Confirmed Last Taken Type levETIRAcetam [Keppra TAB] 1,000 mg PO BID #120 tablet 08/23/19 08/23/19 Unknown Rx levETIRAcetam [Keppra TAB] 1,000 mg PO BID #60 tab 08/23/19 Unknown Rx levETIRAcetam [Keppra TAB] 1,000 mg PO BID #60 tab 09/30/19 Unknown Rx ED Physical Exam - General Limitations: Physical Limitation General appearance: alert, in no apparent distress - Head Head exam: Present: atraumatic, normocephalic - Eye Eye exam: Present: normal appearance, EOMI - ENT ENT exam: Present: mucous membranes moist - Neck Neck exam: Present: normal inspection - Respiratory Respiratory exam: Present: normal lung sounds bilaterally. Absent: respiratory distress - Cardiovascular Cardiovascular Exam: Present: regular rate, normal rhythm - GI/Abdominal GI/Abdominal exam: Present: soft. Absent: distended, tenderness - Extremities Exam Extremities exam: Present: other (left BKA present) - Neurological Exam Neurological exam: Present: alert, oriented X3, CN II-XII intact. Absent: motor sensory deficit - Psychiatric Psychiatric exam: Present: normal affect, normal mood - Skin Skin exam: Present: warm, dry, intact, normal color ED Course Vital Signs 09/30/19 09/30/19 09/30/19 16:18 17:26 17:30 Temperature 99.5 F Pulse Rate 63 66 Respiratory 17 18 Rate Blood Pressure 124/65 115/74 Blood Pressure 124/65 [Right] O2 Sat by Pulse 98 96 Oximetry 09/30/19 09/30/19 09/30/19 17:45 18:00 18:15 Temperature Pulse Rate 63 57 L 67 Respiratory 18 17 17 Rate Blood Pressure 112/71 113/68 119/71 Blood Pressure [Right] O2 Sat by Pulse 99 98 Oximetry 09/30/19 09/30/19 09/30/19 18:30 18:45 19:01 Temperature Pulse Rate 66 63 70 Respiratory 16 18 19 Rate Blood Pressure 129/78 114/72 118/71 Blood Pressure [Right] O2 Sat by Pulse 100 98 100 Oximetry 12/13/19 19:20 Temperature 98.6 F Pulse Rate 79 Respiratory 16 Rate Blood Pressure Blood Pressure 122/87 [Right] O2 Sat by Pulse 100 Oximetry ED Medical Decision Making - Lab Data Result diagrams: 09/30/19 17:39 09/30/19 17:39 - Medical Decision Making - hx of seizures, seizure at home today - pt A&O x 3, no neuro deficits - keppra given, labs normal - will d/c home w/ keppra refill - Differential Diagnosis seizure Critical care attestation.: If time is entered above; I have spent that time in minutes in the direct care of this critically ill patient, excluding procedure time. ED Disposition Clinical Impression: Seizure Disposition: DC-01 TO HOME OR SELFCARE Is pt being admited?: No Condition: Stable Instructions: Recurrent Seizures Adult (ED) Prescriptions: levETIRAcetam [Keppra TAB] 1,000 mg PO BID #60 tab Referrals: PRIMARY MD CRYSTAL [Primary Care Provider] - 3-5 Days KRISTA HERNANDES MD [Referring] - 3-5 Days Time of Disposition: 19:31
[2019-09-30 19:49] VITALS: BP 122/87
== END 2019-09-30 20:03 | disposition home or self-care (01) ==
LOC: ED 15:23
DX: G40.909 Epilepsy, unspecified, not intractable, without status epilepticus (principal); F12.10 Cannabis abuse, uncomplicated; F17.200 Nicotine dependence, unspecified, uncomplicated; Z98.890 Other specified postprocedural states; Z79.899 Other long term (current) drug therapy; Z88.8 Allergy status to other drugs, medicaments and biological substances
CPT/HCPCS: 36415; 80048; 82962; 83735; 85025; 96365; 99284; J1953

== ENCOUNTER 2019-11-06 08:51 | Emergency (ER) | payer MEDICAID ==
[2019-11-06] MEDS ORDERED: levETIRAcetam 1000 MG/NS 0.75% 1,000 MG/100 ML BAG IV ONE (09:47)
--- NOTE | 2019-11-06 09:51 | Emergency Department Report ---
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 Patient brought to the emergency room via EMS for evaluation of 2 episode of seizure this morning. Patient stated that he ran out of his Keppra yesterday. Patient denied any recent injury. Patient also denied any fever, chills, chest pain, shortness of breath or cough. MD Complaint: seizure -: This morning Description of Episode: loss of consciousness, tonic-clonic movement, post-event confusion Witnessed:: Yes Trauma: No Seizure History: known seizure disorder Place: home Possible Precipitating Event: none Associated Symptoms: denies other symptoms - Related Data Previous Rx's Medication Instructions Recorded Last Taken Type levETIRAcetam [Keppra TAB] 1,000 mg PO BID #120 tablet 08/23/19 Unknown Rx levETIRAcetam [Keppra TAB] 1,000 mg PO BID #60 tab 10/01/19 Unknown Rx levETIRAcetam [Keppra TAB] 1,000 mg PO BID #60 tab 11/06/19 Unknown Rx Allergies Allergy/AdvReac Type Severity Reaction Status Date / Time phenobarbital Allergy Itching Verified 08/23/19 12:45 ED Review of Systems ROS: Stated complaint: SEIZURE Other details as noted in HPI Comment: All other systems reviewed and negative Constitutional: denies: chills, fever Respiratory: denies: cough, orthopnea, shortness of breath, wheezing Cardiovascular: denies: chest pain, palpitations Gastrointestinal: denies: abdominal pain, nausea, vomiting, diarrhea, constipation, hematemesis, melena, hematochezia Genitourinary: denies: urgency, dysuria, frequency, hematuria, discharge Musculoskeletal: denies: back pain Neurological: denies: headache, weakness, numbness, paresthesias, confusion ED Past Medical Hx - Past Medical History Hx Hypertension: No Hx CVA: No Hx Heart Attack/AMI: No Hx Congestive Heart Failure: No Hx Diabetes: No Hx Deep Vein Thrombosis: No Hx Pulmonary Embolism: No Hx GERD: No Hx Liver Disease: No Hx Renal Disease: No Hx Sickle Cell Disease: No Hx Arthritis: No Hx Headaches / Migraines: No Hx Seizures: Yes (Takes Keppra 1000 mg BID) Hx Kidney Stones: No Hx Psychiatric Treatment: No Hx Asthma: No Hx COPD: No Hx Tuberculosis: No Hx Dementia: No Hx HIV: No Additional medical history: LLE AMBULATION - Surgical History Hx Coronary Stent: No Hx Open Heart Surgery: No Hx Pacemaker: No Hx Internal Defibrillator: No Hx Cholecystectomy: No Hx Appendectomy: No Hx Breast Surgery: No 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, craniotomy - Social History Smoking Status: Current Every Day Smoker Substance Use Type: Marijuana - Medications Home Medications: Home Medications Medication Instructions Recorded Confirmed Last Taken Type levETIRAcetam [Keppra TAB] 1,000 mg PO BID #120 tablet 08/23/19 08/23/19 Unknown Rx levETIRAcetam [Keppra TAB] 1,000 mg PO BID #60 tab 10/01/19 Unknown Rx levETIRAcetam [Keppra TAB] 1,000 mg PO BID #60 tab 11/06/19 Unknown Rx ED Physical Exam - General General appearance: alert, in no apparent distress - Head Head exam: Present: atraumatic, normocephalic, normal inspection - Eye Eye exam: Present: normal appearance - ENT ENT exam: Present: normal exam, normal orophraynx, mucous membranes moist - Neck Neck exam: Present: normal inspection, full ROM. Absent: tenderness, meningismus, lymphadenopathy, thyromegaly - Respiratory Respiratory exam: Present: normal lung sounds bilaterally - Cardiovascular Cardiovascular Exam: Present: regular rate, normal rhythm, normal heart sounds - GI/Abdominal GI/Abdominal exam: Present: soft, normal bowel sounds. Absent: distended, tenderness, guarding, rebound, rigid, organomegaly, mass, bruit, pulsatile mass, hernia - Extremities Exam Extremities exam: Present: full ROM, normal capillary refill, other (left BKA). Absent: tenderness, pedal edema, calf tenderness - Back Exam Back exam: Present: normal inspection, full ROM. 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 Patient brought to the emergency room via EMS for evaluation of 2 episode of seizure this morning. Patient stated that he ran out of his Keppra yesterday. Patient denied any recent injury. Patient also denied any fever, chills, chest pain, shortness of breath or cough. Labs reviewed and is unremarkable. Patient received 1 g of Keppra IV in the emergency room. No seizure activity observed in the ER. Patient given prescription for Keppra 1000 mg twice a day and advised to follow-up with his neurologist in the next 2-3 days and to return to the ER if he develop any new symptoms. Critical care attestation.: If time is entered above; I have spent that time in minutes in the direct care of this critically ill patient, excluding procedure time. ED Disposition Clinical Impression: Seizure Disposition: DC-01 TO HOME OR SELFCARE Is pt being admited?: No Condition: Stable Instructions: Recurrent Seizures Adult (ED) Referrals: PRIMARY CARE, [Primary Care Provider] - 3-5 Days
[2019-11-06 10:28] LABS: Basophils % (Auto) 0.5 % (0.0-1.8); Hematocrit 34.6 % (35.5-45.6); Hemoglobin 11.9 gm/dl (11.8-15.2); Lymphocytes # (Auto) 0.8 K/mm3 (1.2-5.4); Lymphocytes % (Auto) 15.3 % (13.4-35.0); Mean Corpuscular HGB Conc 35 % (32-34); Mean Corpuscular Volume 96 fl (84-94); Monocytes # (Auto) 0.3 K/mm3 (0.0-0.8); Monocytes % (Auto) 5.2 % (0.0-7.3); Platelet Count 219 K/mm3 (140-440); Red Blood Count 3.62 M/mm3 (3.65-5.03); Red Cell Distribution Width 13.8 % (13.2-15.2)
[2019-11-06 10:44] LABS: Alanine Aminotransferase 6 units/L (7-56); Albumin 3.5 g/dL (3.9-5); BUN/Creatinine Ratio 13; Blood Urea Nitrogen 10 mg/dL (9-20); Calcium 8.5 mg/dL (8.4-10.2); Hemolysis Index 5
[2019-11-06 10:57] LABS: Bilirubin,Direct < 0.2 mg/dL (0-0.2)
[2019-11-06 11:44] LABS: Bilirubin,Urine NEG (Negative); Blood,Urine SM (Negative); Color,Urine Yellow (Yellow); Mucus,Urine 1+ /HPF; Urobilinogen,Urine < 2.0 mg/dL (<2.0)
[2019-11-06 11:53] LABS: Amphetamine Screen,Urine PRESUMPTIVE NEGATIVE; Benzodiazepines Screen,Urine PRESUMPTIVE NEGATIVE; Cocaine Screen,Urine PRESUMPTIVE NEGATIVE; Methadone Screen,Urine PRESUMPTIVE NEGATIVE; Opiate Screen,Urine PRESUMPTIVE NEGATIVE
[2019-11-06 12:16] LABS: Cannabinoid Screen,Urine PRESUMPTIVE POSITIVE
[2019-11-06 13:19] VITALS: BP 111/66
== END 2019-11-06 13:29 | disposition home or self-care (01) ==
LOC: ED 08:51
DX: R56.9 Unspecified convulsions (principal); F17.200 Nicotine dependence, unspecified, uncomplicated; F12.10 Cannabis abuse, uncomplicated; Z98.890 Other specified postprocedural states; Z79.899 Other long term (current) drug therapy; Z88.6 Allergy status to analgesic agent
CPT/HCPCS: 36415; 80048; 80076; 80307; 81001; 85025; 87086; 96374; 99284; J1953

== ENCOUNTER 2019-12-09 02:24 | Emergency (ER) | payer MEDICAID ==
[2019-12-09] MEDS ORDERED: SODIUM CHLORIDE 0.9% 1000 ML 1,000 ML IV ONE (02:49)
[2019-12-09 02:57] LABS: Basophils # (Auto) 0.1 K/mm3 (0.0-0.1); Eosinophils % (Auto) 0.1 % (0.0-4.3); Hematocrit 40.3 % (35.5-45.6); Hemoglobin 13.4 gm/dl (11.8-15.2); Lymphocytes # (Auto) 1.9 K/mm3 (1.2-5.4); Lymphocytes % (Auto) 26.5 % (13.4-35.0); Mean Corpuscular HGB Conc 33 % (32-34); Mean Corpuscular Volume 96 fl (84-94); Monocytes # (Auto) 0.4 K/mm3 (0.0-0.8); Monocytes % (Auto) 5.6 % (0.0-7.3); Platelet Count 230 K/mm3 (140-440); Red Cell Distribution Width 13.9 % (13.2-15.2)
[2019-12-09 03:29] LABS: Alanine Aminotransferase 6 units/L (7-56); BUN/Creatinine Ratio 6; Blood Urea Nitrogen 6 mg/dL (9-20); Calcium 8.9 mg/dL (8.4-10.2); Hemolysis Index 12
[2019-12-09] MEDS ORDERED: LORazepam 2 MG/ML VIAL ONE (04:19)
[2019-12-09] MEDS ORDERED: levETIRAcetam 1000 MG/NS 0.75% 1,000 MG/100 ML BAG IV ONE (04:19)
--- NOTE | 2019-12-09 04:51 | Emergency Department Report ---
ED Seizure HPI - General Chief Complaint: Seizure Stated Complaint: SEIZURE Time Seen by Provider: 12/09/19 02:49 Source: patient, EMS Mode of arrival: Stretcher Limitations: Altered Mental Status - History of Present Illness Initial Comments: 44-year-old male with a history of a left BKA, seizure disorder, presents the ED after having a seizure witnessed in the street. Patient did voice that he had not been compliant with his Keppra. He usually takes Keppra 1000 mg twice a day, but his prescription ran out. Denies any fever, neck pain, chills or night sweats. Upon arrival in the ED, patient also had another seizure, lasting about 1 minute, which resolved by itself without any medication. Patient was then started on Keppra 1 g IV. MD Complaint: seizure -: Sudden Description of Episode: loss of consciousness, tonic-clonic movement, post-event confusion -: second(s) (60) Witnessed:: Yes Trauma: No Seizure History: known seizure disorder Place: street/outdoors Possible Precipitating Event: none Associated Symptoms: denies other symptoms Treatments Prior to Arrival: none - Related Data Previous Rx's Medication Instructions Recorded Last Taken Type levETIRAcetam [Keppra TAB] 1,000 mg PO BID #120 tablet 08/23/19 Unknown Rx levETIRAcetam [Keppra TAB] 1,000 mg PO BID #60 tab 11/06/19 Unknown Rx cephALEXin [Keflex] 500 mg PO Q12HR #14 cap 12/09/19 Unknown Rx levETIRAcetam [Keppra TAB] 1,000 mg PO BID #60 tab 12/09/19 Unknown Rx Allergies Allergy/AdvReac Type Severity Reaction Status Date / Time phenobarbital Allergy Itching Verified 08/23/19 12:45 ED Review of Systems ROS: Stated complaint: SEIZURE Other details as noted in HPI Comment: All other systems reviewed and negative Endocrine: denies: flushing Gastrointestinal: denies: nausea Neurological: other (Seizures) ED Past Medical Hx - Past Medical History Hx Hypertension: No Hx CVA: No Hx Heart Attack/AMI: No Hx Congestive Heart Failure: No Hx Diabetes: No Hx Deep Vein Thrombosis: No Hx Pulmonary Embolism: No Hx GERD: No Hx Liver Disease: No Hx Renal Disease: No Hx Sickle Cell Disease: No Hx Arthritis: No Hx Headaches / Migraines: No Hx Seizures: Yes (Takes Keppra 1000 mg BID) Hx Kidney Stones: No Hx Psychiatric Treatment: No Hx Asthma: No Hx COPD: No Hx Tuberculosis: No Hx Dementia: No Hx HIV: No Additional medical history: LLE AMBULATION - Surgical History Hx Coronary Stent: No Hx Open Heart Surgery: No Hx Pacemaker: No Hx Internal Defibrillator: No Hx Cholecystectomy: No Hx Appendectomy: No Hx Breast Surgery: No 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, craniotomy - Social History Smoking Status: Current Every Day Smoker Substance Use Type: Marijuana - Medications Home Medications: Home Medications Medication Instructions Recorded Confirmed Last Taken Type levETIRAcetam [Keppra TAB] 1,000 mg PO BID #120 tablet 08/23/19 08/23/19 Unknown Rx levETIRAcetam [Keppra TAB] 1,000 mg PO BID #60 tab 11/06/19 Unknown Rx cephALEXin [Keflex] 500 mg PO Q12HR #14 cap 12/09/19 Unknown Rx levETIRAcetam [Keppra TAB] 1,000 mg PO BID #60 tab 12/09/19 Unknown Rx ED Physical Exam - General Limitations: No Limitations General appearance: alert, in no apparent distress - Head Head exam: Present: atraumatic, normocephalic - Eye Eye exam: Present: normal appearance, PERRL, EOMI Pupils: Present: normal accommodation - ENT ENT exam: Present: normal exam, normal orophraynx - Neck Neck exam: Present: normal inspection - Respiratory Respiratory exam: Present: normal lung sounds bilaterally - Cardiovascular Cardiovascular Exam: Present: regular rate, normal rhythm - GI/Abdominal GI/Abdominal exam: Present: soft - Back Exam Back exam: Present: normal inspection - Neurological Exam Neurological exam: Present: alert, oriented X3, CN II-XII intact - Psychiatric Psychiatric exam: Present: normal affect ED Course Vital Signs 12/09/19 12/09/19 12/09/19 02:34 02:38 02:40 Temperature 98 F Pulse Rate 77 Respiratory Rate Blood Pressure 115/69 115/69 115/69 Blood Pressure [right arm] O2 Sat by Pulse 98 100 99 Oximetry 12/09/19 12/09/19 12/09/19 02:42 02:44 02:46 Temperature Pulse Rate Respiratory Rate Blood Pressure 115/69 115/69 119/90 Blood Pressure [right arm] O2 Sat by Pulse 100 99 99 Oximetry 12/09/19 12/09/19 12/09/19 02:47 02:48 02:50 Temperature Pulse Rate Respiratory Rate Blood Pressure 119/90 119/90 119/90 Blood Pressure [right arm] O2 Sat by Pulse 98 87 82 L Oximetry 12/09/19 12/09/19 12/09/19 02:52 02:54 02:56 Temperature Pulse Rate Respiratory Rate Blood Pressure 119/90 119/90 119/90 Blood Pressure [right arm] O2 Sat by Pulse 100 100 100 Oximetry 12/09/19 12/09/19 12/09/19 02:58 03:00 03:02 Temperature Pulse Rate Respiratory Rate Blood Pressure 119/90 117/67 117/67 Blood Pressure [right arm] O2 Sat by Pulse 100 100 100 Oximetry 12/09/19 12/09/19 12/09/19 03:04 03:06 03:08 Temperature Pulse Rate 64 Respiratory 14 Rate Blood Pressure 117/67 117/67 117/67 Blood Pressure 117/67 [right arm] O2 Sat by Pulse 100 100 100 Oximetry 12/09/19 12/09/19 12/09/19 03:10 03:12 03:14 Temperature Pulse Rate Respiratory Rate Blood Pressure 117/67 119/90 119/90 Blood Pressure [right arm] O2 Sat by Pulse 99 100 100 Oximetry 12/09/19 12/09/19 12/09/19 03:15 03:16 03:18 Temperature Pulse Rate Respiratory Rate Blood Pressure 116/71 116/71 116/71 Blood Pressure [right arm] O2 Sat by Pulse 100 100 100 Oximetry 12/09/19 12/09/19 12/09/19 03:20 03:22 03:24 Temperature Pulse Rate Respiratory Rate Blood Pressure 116/71 116/71 116/71 Blood Pressure [right arm] O2 Sat by Pulse 100 100 100 Oximetry 12/09/19 12/09/19 12/09/19 03:26 03:28 03:30 Temperature Pulse Rate Respiratory Rate Blood Pressure 116/71 116/71 114/73 Blood Pressure [right arm] O2 Sat by Pulse 100 100 100 Oximetry 12/09/19 12/09/19 12/09/19 03:32 03:34 03:36 Temperature Pulse Rate Respiratory Rate Blood Pressure 114/73 114/73 114/73 Blood Pressure [right arm] O2 Sat by Pulse 100 100 100 Oximetry 12/09/19 12/09/19 12/09/19 03:38 03:40 03:42 Temperature Pulse Rate Respiratory Rate Blood Pressure 114/73 114/73 114/73 Blood Pressure [right arm] O2 Sat by Pulse 100 100 100 Oximetry 12/09/19 12/09/19 12/09/19 03:44 03:45 03:46 Temperature Pulse Rate Respiratory Rate Blood Pressure 114/73 118/69 118/69 Blood Pressure [right arm] O2 Sat by Pulse 100 100 100 Oximetry 12/09/19 12/09/19 12/09/19 03:48 03:50 03:52 Temperature Pulse Rate Respiratory Rate Blood Pressure 118/69 118/69 118/69 Blood Pressure [right arm] O2 Sat by Pulse 99 99 100 Oximetry 12/09/19 12/09/19 12/09/19 03:54 03:56 04:28 Temperature Pulse Rate 99 H Respiratory 10 L Rate Blood Pressure 118/69 118/69 Blood Pressure 116/69 [right arm] O2 Sat by Pulse 99 100 100 Oximetry 12/09/19 05:36 Temperature Pulse Rate 74 Respiratory 12 Rate Blood Pressure Blood Pressure 115/67 [right arm] O2 Sat by Pulse 100 Oximetry ED Medical Decision Making - Lab Data Result diagrams: 12/09/19 02:35 12/09/19 02:35 - EKG Data -: EKG Interpreted by Oh EKG shows normal: sinus rhythm Rate: normal - EKG Data When compared to previous EKG there are: no significant change Interpretation: no acute changes - Medical Decision Making Patient received 1 g of Keppra IV in the emergency room. Patient given prescription for Keppra 1000 mg twice a day and advised to follow-up with his neurologist in the next 2-3 days and to return to the ER if he develop any new symptoms. UA consistent with cystitis, Keflex 500 twice daily written to be taken at home. Critical care attestation.: If time is entered above; I have spent that time in minutes in the direct care of this critically ill patient, excluding procedure time. ED Disposition Clinical Impression: Seizure disorder UTI (urinary tract infection) Qualifiers: Urinary tract infection type: acute cystitis Hematuria presence: without hematuria Qualified Code(s): N30.00 - Acute cystitis without hematuria Disposition: DC-01 TO HOME OR SELFCARE Is pt being admited?: No Does the pt Need Aspirin: No Condition: Stable Instructions: Recurrent Seizures Adult (ED) Prescriptions: cephALEXin [Keflex] 500 mg PO Q12HR #14 cap levETIRAcetam [Keppra TAB] 1,000 mg PO BID #60 tab Referrals: PRIMARY CARE, [Primary Care Provider] - 3-5 Days
[2019-12-09 05:56] LABS: Amphetamine Screen,Urine PRESUMPTIVE NEGATIVE; Benzodiazepines Screen,Urine PRESUMPTIVE NEGATIVE; Cocaine Screen,Urine PRESUMPTIVE NEGATIVE; Methadone Screen,Urine PRESUMPTIVE NEGATIVE; Opiate Screen,Urine PRESUMPTIVE NEGATIVE
[2019-12-09 06:09] LABS: Cannabinoid Screen,Urine PRESUMPTIVE POSITIVE
[2019-12-09 06:10] LABS: Bacteria,Urine 1+ /HPF (Negative); Bilirubin,Urine NEG (Negative); Blood,Urine SM (Negative); Color,Urine Yellow (Yellow); Mucus,Urine FEW /HPF; Protein,Urine <15 mg/dL mg/dL (Negative); Urobilinogen,Urine < 2.0 mg/dL (<2.0)
[2019-12-09 07:42] VITALS: BP 119/72
== END 2019-12-09 07:22 | disposition home or self-care (01) ==
LOC: ED 02:24
DX: G40.909 Epilepsy, unspecified, not intractable, without status epilepticus (principal); N39.0 Urinary tract infection, site not specified; F17.200 Nicotine dependence, unspecified, uncomplicated; F12.10 Cannabis abuse, uncomplicated; Z79.899 Other long term (current) drug therapy; Z98.890 Other specified postprocedural states
CPT/HCPCS: 36415; 80053; 80307; 81001; 85025; 87086; 93005; 93010; 96365; 99284; J1953; J7030; 80320; G0480; J2060